=== PATIENT | female | born 1995 | race Caucasian/White ===

== ENCOUNTER 2020-10-04 12:34 | Emergency (ER) | payer OTHER ==
[~2020-10-04] VITALS: Ht 162.6 cm; Wt 63.5 kg
[2020-10-04 12:39] VITALS: BP 126/75
[2020-10-04] MEDS ORDERED: LIDOCAINE MPF 1% 10 MG/ML VIAL INJ ONE (13:20)
[2020-10-04] MEDS ORDERED: KETOROLAC 30 MG/ML VIAL IM ONE (13:20)
[2020-10-04] MEDS ORDERED: cefTRIAXone 1,000 MG in LIDOCAINE MPF 1% 2.1 ML IM ONE (13:20)
[2020-10-04] MEDS ORDERED: cefTRIAXone 1,000 MG VIAL ONE (13:21)
[2020-10-04] MEDS ORDERED: LIDOCAINE MPF 1% 5 ML ONE (13:21)
[2020-10-04] MEDS ORDERED: SULFAMETH/TRIMETH DS 800/160MG 1 TAB PO ONE (13:45)
[2020-10-04] MEDS ORDERED: ACETAMINOPHEN EXTRA STRENGTH 500 MG TAB PO ONE (13:45)
[2020-10-04] MEDS ORDERED: CEPH500C16 PO (13:48)
[2020-10-04 14:18] VITALS: BP 126/75
== END 2020-10-04 14:19 | disposition home or self-care (01) ==
LOC: MED 12:34
DX: L02.01 Cutaneous abscess of face (principal); Z79.899 Other long term (current) drug therapy; W57.XXXA Bitten or stung by nonvenomous insect and other nonvenomous arthropods, initial encounter; Y93.89 Activity, other specified; Y92.89 Other specified places as the place of occurrence of the external cause; Y99.8 Other external cause status
CPT/HCPCS: 10060; 96372; 99284; J0696; J1885; J2001

== ENCOUNTER 2024-04-21 10:36 | Emergency (ER) | payer MEDICAID, OTHER ==
[~2024-04-21] VITALS: Ht 157.5 cm; Wt 73.9 kg
[~2024-04-21 10:36] MED LIST: CEPH500C16 PO
[2024-04-21 10:52] VITALS: BP 122/75; PULSE 106; RESP 18; TEMP 98; O2SAT 100
[2024-04-21 11:25] VITALS: BP 122/75; PULSE 106; RESP 18; TEMP 98; O2SAT 100
== END 2024-04-21 11:25 | disposition left against medical advice (07) ==
LOC: MED 10:36
DX: N93.9 Abnormal uterine and vaginal bleeding, unspecified (principal); Z53.21 Procedure and treatment not carried out due to patient leaving prior to being seen by health care provider